=== PATIENT | male | born 1980 | race Caucasian/White ===

== ENCOUNTER 2020-08-23 09:05 | Emergency (ER) | payer OTHER ==
[~2020-08-23] VITALS: Ht 177.8 cm; Wt 109.0 kg
[2020-08-23] MEDS ORDERED: ASPIRIN 81 MG TABLET CHEW PO ONE (09:30)
--- NOTE | 2020-08-23 09:32 | NUR ---
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
--- NOTE | 2020-08-23 09:46 | NUR ---
PT A&OX4, RESP EVEN & UNLABORED, SPEECH CLEAR, SKIN WNL. STATES LT UPPER CP STARTED ABOUT 0630 WHILE WALKING AROUND AT WORK; SEEMS TO WORSEN W/ STRESS; EASES W/ SITTING STILL. DENIES CARD HX. NO MED TAKEN FOR SX. DENIES N/V, LIGHTHEADENESS, DIZZINESS. 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
[2020-08-23] MEDS ORDERED: ASPIRIN 81 MG TABLET CHEW ONE (09:49)
--- NOTE | 2020-08-23 09:51 | NUR ---
ASA GIVEN PER EMAR. CARDIAC MONITORING IN PROGRESS: NSR. PT RESTING COMFORTABLY ON GURNEY. SPOUSE IN ROOM.
[2020-08-23 10:12] LABS: BASOPHILS % (AUTO) 1 % (0-1); EOSINOPHILS % (AUTO) 1 % (1-7); LYMPHOCYTES % (AUTO) 24 % (22-44); MEAN CORPUSCULAR HEMOGLOBIN 29.5 pg (27.5-34.5); MEAN CORPUSCULAR HGB CONC 33.8 g/dL (33.2-36.2); MEAN PLATELET VOLUME 7.7 fL (7.4-10.4); MONOCYTES % (AUTO) 5 % (2-9); NEUTROPHILS % (AUTO) 69 % (42-75); PLATELET COUNT 238 x10^3/uL (130-400); RED BLOOD COUNT 4.85 x10^6/uL (4.38-5.82)
[2020-08-23 10:14] LABS: MD NO
[2020-08-23] MEDS ORDERED: KETOROLAC 30 MG/1 ML ONE (10:20)
[2020-08-23 10:24] LABS: ALANINE AMINOTRANSFERASE 44 U/L (12-78); ALBUMIN 4.1 g/dL (3.4-5.0); ANION GAP 6 mmol/L (5-15); CALCIUM 9.1 mg/dL (8.5-10.1); CHLORIDE 105 mmol/L (98-107)
--- NOTE | 2020-08-23 10:26 | NUR ---
TORADOL GIVEN PER EMAR. PT SITTING QUIETLY ON GURNEY. CALL LIGHT W./IN REACH. SPOUSE IN ROOM
[2020-08-23 10:29] LABS: ALKALINE PHOSPHATASE 110 U/L (45-117); BILIRUBIN,TOTAL 0.4 mg/dL (0.2-1.0); TOTAL PROTEIN 7.6 g/dL (6.4-8.2); TROPONIN I < 0.015 ng/mL (0.000-0.045)
[2020-08-23] MEDS ORDERED: KETOROLAC 30 MG/1 ML IM ONE (10:30)
--- NOTE | 2020-08-23 10:56 | NUR ---
PT TO HAVE REPEAT TROPONIN LEVEL AT 1200 TODAY.
--- NOTE | 2020-08-23 12:20 | NUR ---
RESTING COMFORTABLY ON GURNEY. REPORTS IMPROVMENT IN PAIN; CURRENTLY INTERMITTENT AND MILD. AWAITING REPEAT TROP LEVEL DRAW. MONITORING CONTINUING: NSR.
[2020-08-23 13:16] LABS: TROPONIN I < 0.015 ng/mL (0.000-0.045)
--- NOTE | 2020-08-23 13:43 | NUR ---
KOBY JON AT BS TO DISCUSS POC
[2020-08-23 13:54] VITALS: BP 128/79
== END 2020-08-23 14:09 | disposition home or self-care (01) ==
LOC: ED 10:36
DX: R07.89 Other chest pain (principal); R11.0 Nausea; R94.31 Abnormal electrocardiogram [ECG] [EKG]
CPT/HCPCS: 36415; 71045; 80053; 84484; 85025; 93005; 96372; 99285; J1885